=== PATIENT | male | born 1995 | race Two or more races ===

== ENCOUNTER 2020-01-03 17:02 | Emergency (ER) | payer OTHER ==
[~2020-01-03] VITALS: Ht 162.6 cm; Wt 68.5 kg
[2020-01-03 17:14] VITALS: BP 122/79
--- NOTE | 2020-01-03 17:50 | NUR ---
Rajendra lense used on right eye, pt tollerating well
--- NOTE | 2020-01-03 19:03 | NUR ---
Report from Junior sams. This rn to assume care of pt. Awaiting d/c instructions.
== END 2020-01-03 19:24 | disposition home or self-care (01) ==
LOC: ED 18:51
DX: T15.11XA Foreign body in conjunctival sac, right eye, initial encounter (principal); W45.8XXA Other foreign body or object entering through skin, initial encounter; Y93.89 Activity, other specified; Y92.69 Other specified industrial and construction area as the place of occurrence of the external cause; Y99.8 Other external cause status
CPT/HCPCS: 99283